=== PATIENT | female | born 1975 | race Caucasian/White ===

== ENCOUNTER 2018-01-26 15:30 | Emergency (ER) | payer OTHER ==
[~2018-01-26 15:30] MED LIST: Iopamidol 370 76% 100 ML VIAL ONE; Sodium Chloride 0.9% 100 ML BAG ONE
[2018-01-26] MEDS ORDERED: Ondansetron HCl/PF 4 MG/2 ML Vial ONE ×2 (17:05→20:55)
[2018-01-26] MEDS ORDERED: Ketorolac Tromethamine 30 MG/ML VIAL ONE (17:05)
[2018-01-26 17:06] LABS: Bilirubin Negative (Negative); Blood, Urine Negative (Negative); Clarity Clear (Clear); Glucose, Urine (Dipstick) Negative (Negative); Leukocyte Negative (Negative); Nitrite Negative (Negative); Protein, Urine (Dipstick) Negative (Neg-Trace); Urobilinogen 0.2 mg/dL (0.2-1.0)
[2018-01-26 17:21] LABS: Bacteria/HPF Rare-Few HPF (None Seen); RBC/HPF 0-3 HPF (0-3); WBC/HPF 0-3 HPF (0-3)
[2018-01-26 17:31] LABS: #Basophils 0.2 thou/uL (0.0-0.2); #Eosinphils 0.4 thou/uL (0.0-0.7); #Lymphocytes 3.9 thou/uL (1.20-3.40); #Monocytes 0.6 thou/uL (0.11-0.59); #Neutrophils 5.4 thou/uL (1.40-6.50); %Basophils 1.4 % (0.0-1.0); %Eosinophils 3.9 % (0.0-10.0); %Lymphocytes 37.3 % (21.0-51.0); %Monocytes 5.9 % (0.0-10.0); %Neutrophils 51.5 % (42.0-75.0); Hemoglobin 12.1 g/dL (12.0-16.0); Mean Corpuscular HGB CONC 33.4 g/dL (32.0-36.0); Mean Corpuscular Hemoglobin 28.2 pg (27.0-31.0); Mean Corpuscular Volume 84.5 fl (81.0-99.0); Mean Platelet Volume 7.8 fL (7.4-10.4); Platelet Count 387 thou/uL (130-400); RBC Distribution Width 17.5 % (11.5-14.5); Red Blood Cell (RBC) Count 4.27 mill/uL (4.20-5.40); White Blood Cell (WBC) Count 10.6 thou/uL (4.8-10.8)
[2018-01-26 17:41] LABS: ALT (SGPT) 10 U/L (8-55); AST (SGOT) 13 U/L (5-34); Albumin 4.1 g/dL (3.5-5.0); Alkaline Phosphatase 66 U/L (40-150); Anion Gap 18 mmol/L (10-20); BUN (Urea Nitrogen) 9 mg/dL (7.0-18.7); Bilirubin, Total 0.2 mg/dL (0.2-1.2); Calc. Creatinine Clearance 0 mL/min (70-130); Calcium 9.2 mg/dL (7.8-10.44); Carbon Dioxide 22 mmol/L (22-29); Chloride 104 mmol/L (98-107); Estimated GFR-MDRD 80; Globulin 3.9 g/dL (2.4-3.5); Glucose 106 mg/dL (70-105); Potassium 4.7 mmol/L (3.5-5.1); Sodium 139 mmol/L (136-145)
[2018-01-26 17:42] LABS: BHCG - Serum Negative (NEGATIVE); Pregs Control Background? CLEAR/WHITE (CLR/WHITE); Pregs Control Bar Appear? YES (CONTROL BAR)
[2018-01-26] MEDS ORDERED: Morphine 10 MG/ML VIAL ONE ×2 (17:48→18:43)
[2018-01-26] MEDS ORDERED: Promethazine HCl 25 MG/ML VIAL ONE (19:03)
--- NOTE | 2018-01-26 20:06 | CT ---
ABDOMEN CT WITH CONTRAST PELVIC CT WITH CONTRAST 01/26/18 HISTORY: Low back pain below the costovertebral angles. Pain radiates to the suprapubic area. Pain is intermit tent. Dysuria and schezia x3 days. COMPARISON: None. TECHNIQUE: Abdomen and pelvic CT are performed with IV and oral contrast. Coronal reformatted images are submitt ed for interpretation. FINDINGS: ABDOMEN CT: Lung bases are clear. No heart size. No pericardial effusion. The descending thoracic aorta and abdom inal aorta have a normal caliber. No periaortic fat stranding. Gallbladder is surgically absent. Intra and extrahepatic portal vein is patent. Liver, spleen, pancreas and adrenal glands have appropriate enhancement. No gastrohepatic, retrocrural or periportal lymphadenopathy. No mesenteric mass, lymphadenopathy, free air, or free fluid. Gastric mucosa and duodenum are unremarkable. Multiple normal caliber small bowel loops are noted. No evidence of small bowel obstruction. Ileocecal junction is normal. Appendix is surgically absent. Sc attered material in a nondistended, nondilated colon. No evidence of colon obstruction. PELVIC CT: Possible leiomyoma involving the uterine fundus, incompletely evaluated. Heterogeneous attenuation of the right adnexa suggesting possible complex cyst and follicle in the right ovary. Pelvic ultrasound may be beneficial. Left ovary is unremarkable. Overall, there is mild enhancement throughout the tunica-biloxi lia, nonspecific. Correlate clinically for an infectious or inflammatory process. Correlate for possi ble active menstruation. Urinary bladder is unremarkable. No pelvic mass, lymphadenopathy, free air or free fluid. No lytic or blastic lesions in the osseous structures. IMPRESSION: 1. No acute abnormality in the abdomen. 2. Enhancement of the uterus which may be due to infection, inflammation or menstruation. 3. Possible uterine leiomyoma involving the anterior uterus. 4. Mixed attenuation of the right adnexa. Pelvic ultrasound may be beneficial. POS: [facility]
[2018-01-26] MEDS ORDERED: Ciprofloxacin 500 MG TAB ONE (20:55)
[2018-01-26] MEDS ORDERED: metroNIDAZOLE 250 MG TAB ONE (20:55)
== END 2018-01-26 21:00 | disposition home or self-care (01) ==
LOC: MADERS 15:30
DX: K57.92 Diverticulitis of intestine, part unspecified, without perforation or abscess without bleeding (principal); J45.909 Unspecified asthma, uncomplicated; I10 Essential (primary) hypertension
CPT/HCPCS: 74177; 80053; 81001; 84703; 85025; 87086; 96374; 96375; 96376; J1885; J2270; J2405; J2550; J7050

== ENCOUNTER 2018-02-09 18:04 | Emergency (ER) | payer OTHER ==
[~2018-02-09 18:04] MED LIST changes: -Sodium Chloride 0.9% 100 ML BAG ONE
[2018-02-09 18:59] LABS: Bilirubin Negative (Negative); Blood, Urine Negative (Negative); Glucose, Urine (Dipstick) Negative (Negative); Leukocyte Trace (Negative); Nitrite Negative (Negative); Protein, Urine (Dipstick) Negative (Neg-Trace); Specific Gravity, Urine 1.015 (1.005-1.030); Urobilinogen 0.2 mg/dL (0.2-1.0)
[2018-02-09 19:05] LABS: Clarity Hazy (Clear)
[2018-02-09 19:08] LABS: Bacteria/HPF 1+ HPF (None Seen); Crystals/HPF 2+ AMORPH PHOS HPF (Negative); RBC/HPF 0-3 HPF (0-3); WBC/HPF 0-3 HPF (0-3)
[2018-02-09 19:10] LABS: #Basophils 0.2 thou/uL (0.0-0.2); #Eosinphils 0.4 thou/uL (0.0-0.7); #Lymphocytes 3.8 thou/uL (1.20-3.40); #Monocytes 0.6 thou/uL (0.11-0.59); %Basophils 1.7 % (0.0-1.0); %Eosinophils 3.7 % (0.0-10.0); %Lymphocytes 38.2 % (21.0-51.0); %Monocytes 5.9 % (0.0-10.0); %Neutrophils 50.5 % (42.0-75.0); Hemoglobin 12.4 g/dL (12.0-16.0); Mean Corpuscular HGB CONC 31.8 g/dL (32.0-36.0); Mean Corpuscular Hemoglobin 27.8 pg (27.0-31.0); Mean Corpuscular Volume 87.3 fl (81.0-99.0); Mean Platelet Volume 8.5 fL (7.4-10.4); Platelet Count 335 thou/uL (130-400); RBC Distribution Width 15.7 % (11.5-14.5); Red Blood Cell (RBC) Count 4.48 mill/uL (4.20-5.40); White Blood Cell (WBC) Count 9.8 thou/uL (4.8-10.8)
[2018-02-09] MEDS ORDERED: Ketorolac Tromethamine 30 MG/ML VIAL ONE (19:21)
[2018-02-09] MEDS ORDERED: Lorazepam 2 MG/ML VIAL ONE (19:21)
[2018-02-09] MEDS ORDERED: Ondansetron ODT 4 MG TAB ONE (19:21)
[2018-02-09 19:27] LABS: ALT (SGPT) 11 U/L (8-55); AST (SGOT) 9 U/L (5-34); Albumin 4.3 g/dL (3.5-5.0); Alkaline Phosphatase 64 U/L (40-150); Anion Gap 18 mmol/L (10-20); BUN (Urea Nitrogen) 11 mg/dL (7.0-18.7); Bilirubin, Total 0.2 mg/dL (0.2-1.2); Calc. Creatinine Clearance 0 mL/min (70-130); Calcium 9.7 mg/dL (7.8-10.44); Carbon Dioxide 21 mmol/L (22-29); Chloride 106 mmol/L (98-107); Estimated GFR-MDRD 85; Globulin 3.9 g/dL (2.4-3.5); Glucose 97 mg/dL (70-105); Lipase 33 U/L (8-78); Potassium 3.9 mmol/L (3.5-5.1); Protein, Total 8.2 g/dL (6.0-8.3); Sodium 141 mmol/L (136-145)
--- NOTE | 2018-02-09 20:04 | CT ---
CT ABDOMEN AND PELVIS PERFORMED WITH INTRAVENOUS CONTRAST ENHANCEMENT: 02/09/18 HISTORY: Right lower quadrant pain. History of appendectomy and cholecystectomy as well as tubal ligation. COMPARISON: A 01/26/18 study. The lung bases are clear of infiltrates. The liver, spleen and pancreas regions are unremarkable. The gallbladder has been removed. Right and left adrenal gland and right and left kidneys are normal in size and showed no evidence of obstruction. No ureteral calculus. There is no significant periaortic or mesenteric lymphadenopathy. CT OF PELVIS PERFORMED WITH CONTRAST ENHANCEMENT: Appendectomy changes are noted. The uterus is somewhat enlarged and heterogeneous in appearance. Foll icles are seen involving the adnexal regions. There is a slightly enhancing follicle seen in the righ t adnexa. There is no significant free fluid noted. IMPRESSION: 1. Enlarged fibromatous appearing uterus. 2. Follicles involving both adnexa. No significant free fluid. POS: [facility]
== END 2018-02-09 20:39 | disposition home or self-care (01) ==
LOC: MADERS 18:04
DX: N83.201 Unspecified ovarian cyst, right side (principal); D25.9 Leiomyoma of uterus, unspecified; E78.5 Hyperlipidemia, unspecified; I10 Essential (primary) hypertension; J45.909 Unspecified asthma, uncomplicated; G89.29 Other chronic pain; M54.9 Dorsalgia, unspecified; F41.9 Anxiety disorder, unspecified; Z79.82 Long term (current) use of aspirin; Z79.899 Other long term (current) drug therapy
CPT/HCPCS: 74177; 80053; 81001; 82150; 83690; 85025; 87086; 96374; 96375; J1885; J2060; Q0162

== ENCOUNTER 2018-04-01 05:02 | Emergency (ER) | payer OTHER, MEDICAID | END 2018-04-01 05:59 | disposition home or self-care (01) | LOC: MADERS 05:02 | DX: G56.03 Carpal tunnel syndrome, bilateral upper limbs (principal); E78.5 Hyperlipidemia, unspecified; I10 Essential (primary) hypertension; Z86.73 Personal history of transient ischemic attack (TIA), and cerebral infarction without residual deficits; F41.9 Anxiety disorder, unspecified; Z79.899 Other long term (current) drug therapy; Z79.82 Long term (current) use of aspirin | CPT/HCPCS: 99283 ==

== ENCOUNTER 2018-05-16 18:33 | Emergency (ER) | payer OTHER, MEDICAID ==
[2018-05-16 18:59] LABS: #Basophils 0.1 thou/uL (0.0-0.2); #Eosinphils 0.1 thou/uL (0.0-0.7); #Lymphocytes 3.6 thou/uL (1.20-3.40); #Monocytes 0.4 thou/uL (0.11-0.59); #Neutrophils 4.7 thou/uL (1.40-6.50); %Basophils 1.2 % (0.0-1.0); %Eosinophils 1.4 % (0.0-10.0); %Lymphocytes 40.1 % (21.0-51.0); %Monocytes 4.9 % (0.0-10.0); %Neutrophils 52.5 % (42.0-75.0); Hemoglobin 12.7 g/dL (12.0-16.0); Mean Corpuscular HGB CONC 31.9 g/dL (32.0-36.0); Mean Corpuscular Hemoglobin 27.5 pg (27.0-31.0); Mean Corpuscular Volume 86.2 fL (78.0-98.0); Mean Platelet Volume 7.4 fL (7.4-10.4); Platelet Count 281 thou/uL (130-400); RBC Distribution Width 12.1 % (11.5-14.5); Red Blood Cell (RBC) Count 4.62 mill/uL (4.20-5.40); White Blood Cell (WBC) Count 8.9 thou/uL (4.8-10.8)
[2018-05-16 19:07] LABS: PTT 34.7 SEC (22.9-36.1)
[2018-05-16 19:08] LABS: Prothrombin Time 13.4 SEC (12.0-14.7)
[2018-05-16 19:09] LABS: D-Dimer Test Less than 0.27 *mcg/mL (0.27-0.43)
[2018-05-16 19:12] LABS: ALT (SGPT) 22 U/L (8-55); AST (SGOT) 12 U/L (5-34); Albumin 4.4 g/dL (3.5-5.0); Alkaline Phosphatase 77 U/L (40-150); Anion Gap 15 mmol/L (10-20); BUN (Urea Nitrogen) 7 mg/dL (7.0-18.7); Bilirubin, Total 0.2 mg/dL (0.2-1.2); Calc. Creatinine Clearance 0 mL/min (70-130); Calcium 9.6 mg/dL (7.8-10.44); Carbon Dioxide 25 mmol/L (22-29); Chloride 104 mmol/L (98-107); Estimated GFR-MDRD 83; Globulin 4.1 g/dL (2.4-3.5); Potassium 3.4 mmol/L (3.5-5.1); Protein, Total 8.5 g/dL (6.0-8.3); Sodium 141 mmol/L (136-145)
[2018-05-16 19:13] LABS: Glucose 162 mg/dL (70-105)
[2018-05-16 19:17] LABS: CKMB 0.7 ng/mL (0-6.6); Troponin I 0.013 ng/mL (< 0.028)
[2018-05-16] MEDS ORDERED: Potassium Chloride 20 MEQ TAB ONE (19:33)
--- NOTE | 2018-05-16 19:39 | RAD ---
TWO VIEW CHEST: INDICATIONS: Chest pain. FINDINGS: The lungs are clear. There is no effusion or pneumothorax. The cardiac silhouette is normal in size . IMPRESSION: No focal consolidation. POS: [facility]
[2018-05-16] MEDS ORDERED: Morphine 4 MG/ML VIAL ONE (19:45)
[2018-05-16 19:56] LABS: Amphetamine Detected (NotDetected); Barbiturates Screen Not Detected (NotDetected); Benzodiazepine Screen Not Detected (NotDetected); Cocaine Metabolite Screen Not Detected (NotDetected); Methadone Not Detected (NotDetected); Methamphetamine Detected (NotDetected); Opiate Screen Detected (NotDetected); Phencyclidine (PCP) Not Detected (NotDetected); THC/Cannabinoid Screen Not Detected (NotDetected); Tricyclic Screen Not Detected (NotDetected)
[2018-05-16 19:57] LABS: Medtox Control Line Valid? VALID (VALID); Oxycodone Screen Not Detected (NotDetected)
== END 2018-05-16 20:53 | disposition short-term general hospital (02) ==
LOC: MADERS 18:33
DX: R07.9 Chest pain, unspecified (principal); E78.5 Hyperlipidemia, unspecified; I10 Essential (primary) hypertension; J45.909 Unspecified asthma, uncomplicated; F41.9 Anxiety disorder, unspecified; Z87.891 Personal history of nicotine dependence; Z79.899 Other long term (current) drug therapy; Z79.82 Long term (current) use of aspirin
CPT/HCPCS: 71046; 80053; 80306; 82553; 83735; 83880; 84443; 84484; 85025; 85379; 85610; 85730; 93005; 94760; 96374; J2270

== ENCOUNTER 2018-05-26 13:05 | Emergency (ER) | payer MEDICARE, MEDICAID ==
[2018-05-26] MEDS ORDERED: diphenhydrAMINE 25 MG CAP ONE (13:18)
[2018-05-26] MEDS ORDERED: predniSONE 20 MG TAB ONE (13:19)
== END 2018-05-26 13:35 | disposition home or self-care (01) ==
LOC: MADERS 13:05
DX: T63.461A Toxic effect of venom of wasps, accidental (unintentional), initial encounter (principal); Z79.899 Other long term (current) drug therapy; Z79.891 Long term (current) use of opiate analgesic
CPT/HCPCS: 99282; J7506